=== PATIENT | female | born 1990 | race Caucasian/White ===

== ENCOUNTER 2019-04-01 20:14 | Emergency (ER) | payer OTHER ==
[~2019-04-01] VITALS: Ht 167.6 cm; Wt 55.8 kg
[~2019-04-01 20:14] MED LIST: BACTRIM DS TAB1 EACH PO; KEFLEX500 M1 PO
[2019-04-01 21:24] VITALS: BP 129/43
== END 2019-04-01 21:25 | disposition home or self-care (01) ==
LOC: ER 20:14
DX: F20.9 Schizophrenia, unspecified (principal); F41.9 Anxiety disorder, unspecified; F17.210 Nicotine dependence, cigarettes, uncomplicated